=== PATIENT | female | born 1965 | race Caucasian/White ===

== ENCOUNTER → 2016-08-15 | Outpatient (CLI) | payer OTHER ==
--- NOTE | 2016-08-15 08:51 | DIAGNOSTIC IMAGING REPORT ---
LUMBAR SPINE MIN 4 VIEWS CLINICAL HISTORY: LOW BACK PAIN COMPARISON STUDY: No previous studies for comparison. FINDINGS: There is a possible transitional vertebra. 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 This would indicate L5 sacralization. There is marked disc space narrowing at the L4-5 level assuming this numbering scheme. There are no acute fractures. There are no subluxations. IMPRESSION: 1. Possible transitional vertebra 2. No fractures or subluxations identified 3. Marked disc space narrowing at the L4-5 level, assuming that there is sacralization of the L5 vertebra Electronically signed by: Karlos Blackwood M.D. 08/15/2016 8:50 AM Dictated Date/Time: 08/15/2016 8:44 AM
== END | disposition home or self-care (01) ==
LOC: C.RDSM 12:26
PROVIDERS: ATTEND Family Medicine
DX: M54.5 Low back pain (principal); M99.73 Connective tissue and disc stenosis of intervertebral foramina of lumbar region